=== PATIENT | female | born 1945 | race African-American/Black ===

== ENCOUNTER 2020-12-06 13:12 | Outpatient (CLI) | payer MEDICARE | END 2020-12-06 13:13 | disposition home or self-care (01) | LOC: BICULT 13:12 | PROVIDERS: ATTEND Family Medicine | DX: E04.2 Nontoxic multinodular goiter (principal) | CPT/HCPCS: 76536 ==

== ENCOUNTER 2021-04-16 12:34 | Outpatient (CLI) | payer MEDICARE | END 2021-04-16 12:35 | disposition home or self-care (01) | LOC: BICMAMMO 12:34 | PROVIDERS: ATTEND Family Medicine | DX: Z12.31 Encounter for screening mammogram for malignant neoplasm of breast (principal); Z13.820 Encounter for screening for osteoporosis; N64.89 Other specified disorders of breast; M85.89 Other specified disorders of bone density and structure, multiple sites | CPT/HCPCS: 77063; 77067; 77080 ==

== ENCOUNTER 2021-06-03 14:11 | Outpatient (CLI) | payer MEDICARE | END 2021-06-03 14:12 | disposition home or self-care (01) | LOC: BICRAD 14:11 | PROVIDERS: ATTEND Family Medicine | DX: M79.642 Pain in left hand (principal) ==